=== PATIENT | female | born 1955 | race Caucasian/White ===

== ENCOUNTER 2017-01-03 11:00 | Emergency (ER) | payer BC ==
[~2017-01-03] VITALS: Ht 162.6 cm; Wt 68.7 kg
[2017-01-03] MEDS ORDERED: PROCHLORPERAZINE 5 MG/ML, 2ML IVPush ONE (12:00)
[2017-01-03] MEDS ORDERED: SODIUM CHLORIDE FLUSH 10ML SYR IVF ONE (12:00)
[2017-01-03] MEDS ORDERED: SODIUM CHLORIDE 0.9% 1,000ML IVBOLUS ONE (12:00)
[2017-01-03] MEDS ORDERED: DIPHENHYDRAMINE 50 MG/ML, 1ML IVPush ONE (12:00)
[2017-01-03] MEDS ORDERED: OLME20TA PO (12:08)
[2017-01-03] MEDS ORDERED: HYDR25TA6 PO (12:08)
[2017-01-03] MEDS ORDERED: PRAV40TA2 PO (12:09)
[2017-01-03] MEDS ORDERED: ESCI20TA10 PO (12:10)
[2017-01-03] MEDS ORDERED: GABA300C10 PO (12:10)
[2017-01-03] MEDS ORDERED: PROCHLORPERAZINE 5 MG/ML, 2ML ONE (12:16)
[2017-01-03 12:44] LABS: BLOOD UREA NITROGEN 17 mg/dL (7-18)
[2017-01-03 12:46] VITALS: BP 151/70
== END 2017-01-03 14:30 | disposition home or self-care (01) ==
LOC: ED 12:58
DX: G43.101 Migraine with aura, not intractable, with status migrainosus (principal); G43.B0 Ophthalmoplegic migraine, not intractable
CPT/HCPCS: 36415; 70450; 80048; 82040; 85025; 96361; 96374; 99285; J0780; J7030